=== PATIENT | female | born 1945 | race Two or more races ===

== ENCOUNTER 2023-03-13 11:45 | Emergency (ER) | payer OTHER ==
[~2023-03-13] VITALS: Ht 152.4 cm; Wt 55.3 kg
[2023-03-13] MEDS ORDERED: MOTRIN IB200 M1 PO (12:04)
== END 2023-03-13 20:05 | disposition home or self-care (01) ==
LOC: ER 11:45
DX: S32.19XA Other fracture of sacrum, initial encounter for closed fracture (principal); W18.39XA Other fall on same level, initial encounter; Y93.89 Activity, other specified; Y92.018 Other place in single-family (private) house as the place of occurrence of the external cause
CPT/HCPCS: 36415; 73700; 96365; 99284; J2930

== ENCOUNTER 2023-07-31 13:18 | Outpatient (CLI) | payer OTHER ==
[~2023-07-31 13:18] MED LIST: MOTRIN IB200 M1 PO
== END 2023-07-31 13:19 | disposition home or self-care (01) ==
LOC: NUCLEAR 13:18
PROVIDERS: ATTEND Internal Medicine Rheumatology
DX: M81.0 Age-related osteoporosis without current pathological fracture (principal)

== ENCOUNTER → 2024-05-26 | Outpatient (CLI) | payer OTHER ==
[2024-05-26 09:36] LABS: HEMATOCRIT 40.7 % (36.0-45.00); HEMOGLOBIN 13.9 g/dL (12.0-15.00); MEAN CELL VOLUME 89.3 fL (80.00-100.00); MEAN CORPUSCULAR HEMOGLOBIN 30.4 pg (27.00-32.0); MEAN CORPUSCULAR HGB CONC 34.1 g/dl (32.0-36.0); PLATELET COUNT 183 K/uL (150-450); RED BLOOD COUNT 4.56 M/uL (4.00-6.00); RED CELL DISTRIBUTION WIDTH 14.1 % (11.5-14.5)
[2024-05-26 10:49] LABS: CALCIUM 9.9 mg/dL (8.5-10.1); CHOL HDL RATIO 3.4 (0-5.0); CREATININE SERUM 0.56 mg/dL (0.55-1.02); GFR 104.43; POTASSIUM 4.69 mEq/L (3.5-5.1); T4 TOTAL 8.04 UG/DL (4.8-13.9); TSH 1.6 uIU/mL (0.358-3.74)
== END | disposition home or self-care (01) ==
LOC: LAB 08:48
PROVIDERS: ATTEND Internal Medicine Cardiovascular Disease
DX: E11.9 Type 2 diabetes mellitus without complications (principal); E03.9 Hypothyroidism, unspecified; E78.2 Mixed hyperlipidemia; I10 Essential (primary) hypertension

== ENCOUNTER 2024-06-02 10:16 | Outpatient (CLI) | payer OTHER | END 2024-06-02 10:21 | disposition home or self-care (01) | LOC: RAD 10:16 | PROVIDERS: ATTEND Internal Medicine Cardiovascular Disease | DX: M12.9 Arthropathy, unspecified (principal); M46.47 Discitis, unspecified, lumbosacral region ==

== ENCOUNTER 2024-08-25 08:52 | Outpatient (CLI) | payer OTHER ==
[2024-08-25 09:38] LABS: PH,URINE 7.5 (5.0-8.0); URINE APPEARANCE Cloudy; URINE BILIRRUBIN Negative (NEGATIVE); URINE BLOOD Negative; URINE COLOR Yellow; URINE GLUCOSE Negative (NEGATIVE); URINE KETONE Negative (NEGATIVE); URINE LEUKOCYTE Trace; URINE NITRATE Negative; URINE PROTEIN Negative (NEGATIVE); URINE UROBILINOGEN 0.2 E.U./dl
[2024-08-25 09:44] LABS: URINE BACTERIA 72.1 uL (0.0-1933); URINE EPITHELIAL CELLS 2.3 uL (0.0-38.8); URINE WBC 3.6 uL (0.0-23.2)
[2024-08-25 09:46] LABS: URINE RBC 1.9 uL (0.0-20.8)
[2024-08-25 10:00] LABS: HEMOGLOBIN 13.8 g/dL (12.0-15.00); MEAN CELL VOLUME 88.4 fL (80.00-100.00); MEAN CORPUSCULAR HEMOGLOBIN 30.5 pg (27.00-32.0); MEAN CORPUSCULAR HGB CONC 34.5 g/dl (32.0-36.0); PLATELET COUNT 216 K/uL (150-450); RED BLOOD COUNT 4.53 M/uL (4.00-6.00); RED CELL DISTRIBUTION WIDTH 13.7 % (11.5-14.5)
[2024-08-25 10:19] LABS: ob NEGATIVE (NEGATIVE)
[2024-08-25 10:58] LABS: ALBUMIN 3.6 gm/dL (3.4-5.0); BILIRUBIN TOTAL 0.62 mg/dL (0.3-1.2); CALCIUM 9.6 mg/dL (8.5-10.1); CHOL HDL RATIO 2.6 (0-5.0); CREATININE SERUM 0.52 mg/dL (0.55-1.02); GFR 113.75; GLOBULINA 3.2 G/DL (2.4-3.5); POTASSIUM 3.68 mEq/L (3.5-5.1); T4 TOTAL 9.85 UG/DL (4.8-13.9); TOTAL PROTEIN 6.8 gm/dL (6.4-8.2); TSH 1.37 uIU/mL (0.358-3.74)
[2024-08-25 11:14] LABS: T3 TOTAL 1.14 ng/ml (0.846-2.02); VITAMIN D3 25 HYDROXY 43.41 ng/ml (30-120)
== END 2024-08-25 08:53 | disposition home or self-care (01) ==
LOC: LAB 08:52
PROVIDERS: ATTEND Internal Medicine Cardiovascular Disease
DX: I10 Essential (primary) hypertension (principal); E11.9 Type 2 diabetes mellitus without complications; E03.9 Hypothyroidism, unspecified; E78.2 Mixed hyperlipidemia; D64.0 Hereditary sideroblastic anemia; Z12.11 Encounter for screening for malignant neoplasm of colon; E55.9 Vitamin D deficiency, unspecified; M81.0 Age-related osteoporosis without current pathological fracture

== ENCOUNTER 2025-04-05 10:14 | Outpatient (CLI) | payer OTHER | END 2025-04-05 10:18 | disposition home or self-care (01) | LOC: RAD 10:14 | PROVIDERS: ATTEND Internal Medicine Cardiovascular Disease | DX: R07.9 Chest pain, unspecified (principal); M12.9 Arthropathy, unspecified ==

== ENCOUNTER 2025-05-05 10:39 | Outpatient (CLI) | payer OTHER | END 2025-05-05 10:41 | disposition home or self-care (01) | LOC: RAD 10:39 | PROVIDERS: ATTEND Physical Medicine & Rehabilitation | DX: S29.8XXA Other specified injuries of thorax, initial encounter (principal); X58.XXXA Exposure to other specified factors, initial encounter; Y93.9 Activity, unspecified; Y92.9 Unspecified place or not applicable; Y99.9 Unspecified external cause status ==